=== PATIENT | female | born 1960 | race Caucasian/White ===

== ENCOUNTER 2019-07-20 03:45 | Emergency (ER) | payer OTHER ==
--- NOTE | 2019-07-20 04:12 | EDM.PDOC ---
ED HPI GENERAL MEDICAL PROBLEM - General Chief Complaint: Upper Extremity Injury/Pain Stated Complaint: INJURED RIGHT ARM Time Seen by Provider: 07/20/19 04:07 Source of Information: Reports: Patient History Limitations: Reports: No Limitations - History of Present Illness INITIAL COMMENTS - FREE TEXT/NARRATIVE: 58-year-old female presents the ED after slipping and falling on the ice outside this morning while she was preparing to go to work. She slipped and fell went on outstretched right hand injuring her right wrist with pain in her elbow was well. She also landed on her right buttock and hip states it's sore but she could walk without any difficulty. Denies hitting her head or hurting her neck or her ribs. Any injury to her knees or ankles. Patient is not on any blood thinners. She is right-hand dominant. Onset: Today Onset Date: 07/20/19 Onset Time: 03:30 Duration: Minutes: Location: Reports: Upper Extremity, Right (Landed on outstretched right hand injuring her wrist and elbow area.), Lower Extremity, Right (Contusion right hip and buttock.) Quality: Reports: Ache, Throbbing Severity: Moderate Improves with: Reports: Rest Worsens with: Reports: Movement Context: Reports: Trauma (Of the hand or wrist). Denies: Activity, Exercise, Lifting, Sick Contact Associated Symptoms: Denies: Confusion, Chest Pain ( slipped and fell in the eyes.), Cough, cough w sputum, Diaphoresis, Fever/Chills, Headaches, Loss of Appetite, Malaise, Nausea/Vomiting, Rash, Seizure, Shortness of Breath, Syncope , Weakness Treatments BOTTOM POLISHER: Reports: Other (see below) (None.) Right Wrist Pain Score (Numeric/FACES): 10 - Related Data Allergies Allergy/AdvReac Type Severity Reaction Status Date / Time chicken derived Allergy Hives Verified 07/20/19 04:07 egg Allergy Hives Verified 07/20/19 04:07 menthol [From Dermapak Plus] Allergy Itching Verified 07/20/19 03:59 tretinoin Allergy Itching Verified 07/20/19 03:59 [From Dermapak Plus] zinc oxide Allergy Itching Verified 07/20/19 03:59 [From Dermapak Plus] Home Meds: Home Meds Levothyroxine Sodium [Synthroid] 112 mcg PO ACBREAKFAST 07/20/19 [History] amLODIPine [Norvasc] 10 mg PO BEDTIME 07/20/19 [History] oxyCODONE HCl/Acetaminophen [Percocet 5-325 mg Tablet] 1 - 2 each PO Q4H PRN # 20 tablet 07/20/19 [Rx] Past Medical History HEENT History: Reports: Other (See Below) Other HEENT History: retina repair Cardiovascular History: Reports: High Cholesterol, Hypertension CONTINUOUS IMPROVEMENT BLACK BELT History: Reports: Musculoskeletal History: Reports: Fracture, Other (See Below) Other Musculoskeletal History: greenstick R wrist Endocrine/Metabolic History: Reports: Hypothyroidism (On levothyroxine.) - Past Surgical History HEENT Surgical History: Reports: Detached Retina Female Surgical History: Reports: Breast Biopsy, Cervical Cryotherapy Social & Family History - Tobacco Use Smoking Status *Q: Never Smoker - Caffeine Use Caffeine Use: Reports: Coffee - Recreational Drug Use Recreational Drug Use: No - Living Situation & Occupation Living situation: Reports: Occupation: Employed Review of Systems - Review of Systems Review Of Systems: See Below Constitutional: Reports: No Symptoms Eyes: Reports: Glasses Ears: Reports: No Symptoms Nose: Reports: No Symptoms Mouth/Throat: Reports: No Symptoms, Other Respiratory: Reports: No Symptoms Cardiovascular: Reports: No Symptoms (Denies any injury to her teeth or tongue.) , Other GI/Abdominal: Reports: No Symptoms (History of hypertension) Genitourinary: Reports: No Symptoms Musculoskeletal: Reports: Hand Pain (Severe pain right wrist rating up to her right elbow.) Skin: Reports: No Symptoms Neurological: Reports: No Symptoms Psychiatric: Reports: No Symptoms ED EXAM, GENERAL - Physical Exam Exam: See Below Exam Limited By: No Limitations General Appearance: Alert, WD/WN, Moderate Distress, Other (Temperatures 36.1. Pulse 69 respiratory of 18 BP 146/88. Sats are 100% on room air. Offered analgesia but she declined at this time. She was to wait and see what the x- rays show.) Eye Exam: Bilateral Eye: Normal Inspection, PERRL Throat/Mouth: Normal Inspection, Normal Lips, Normal Oropharynx, Other Head: Atraumatic, Normocephalic (No injuries to the tongue or teeth.) Neck: Normal Inspection, Supple, Non-Tender, Full Range of Motion. No: Lymphadenopathy (L), Lymphadenopathy (R) Respiratory/Chest: No Respiratory Distress, Lungs Clear, Normal Breath Sounds, No Accessory Muscle Use, Chest Non-Tender Cardiovascular: Normal Peripheral Pulses, Regular Rate, Rhythm, No Edema, No Gallop, No Murmur, No Rub Peripheral Pulses: 3+: Radial (L), Radial (R), Posterior Tibial (L), Posterior Tibial (R), Dorsalis Pedis (L), Dorsalis Pedis (R) GI/Abdominal: Normal Bowel Sounds, Soft, Non-Tender, No Organomegaly, No Distention, No Mass, Pelvis Stable Back Exam: Normal Inspection, Full Range of Motion. No: CVA Tenderness (L), CVA Tenderness (R) Extremities: Other (She denies any injuries to her left upper extremity or either lower extremity although she did hit her right hip and buttock on the ice. Examination of the right lower extremity shows no pain at the acromioclavicular joint or humerus. Very minimal pain on squeezing the elbow. She is unable to pronate or supinate the forearm. There is obvious swelling and slight deformity of the wrist dorsally. She is unable to make a fist. Good pulses present ulnar and radial.) Neurological: Alert, Oriented, CN II-XII Intact, Normal Cognition, Normal Gait Psychiatric: Normal Affect, Normal Mood, Other Skin Exam: Warm, Dry, Intact (In a good deal of pain), Normal Color, No Rash EKG INTERPRETATION EKG Date: 07/20/19 Time: 04:58 Rhythm: Other Rate (Beats/Min): 49 [place]: Normal P-Wave: Present QRS: Other (Decreased voltage in the limb and precordial leads. RSR prime wave in V1 which is considered a normal variant.) ST-T: Normal QT: Normal EKG Interpretation Comments: Borderline ECG. Course - Vital Signs Last Recorded V/S: Last Vital Signs Temp 36.1 C 07/20/19 03:53 Pulse 69 07/20/19 03:53 Resp 18 07/20/19 03:53 BP 146/88 H 07/20/19 03:53 Pulse Ox 100 07/20/19 03:53 - Orders/Labs/Meds Orders: Active Orders 24 hr Category Date Time Status EKG Documentation Completion [RC] STAT Care 07/20/19 04:38 Active Peripheral IV Care [RC] . DIRECTED Care 07/20/19 04:37 Active Forearm 2V Rt [CR] Stat Exams 07/20/19 04:07 Ordered Wrist Comp Min 3V Lt [CR] Stat Exams 07/20/19 04:07 Taken Sodium Chloride 0.9% [Saline Flush] Med 07/20/19 04:37 Active 10 ml FLUSH ASDIRECTED PRN DME for Discharge [COMM] Routine Oth 07/20/19 07:05 Ordered Peripheral IV Insertion Adult [OM.PC] Stat Oth 07/20/19 04:37 Ordered Medication Orders Sodium Chloride (Saline Flush) 10 ml FLUSH ASDIRECTED PRN PRN Reason: Keep Vein Open Last Admin: 07/20/19 04:49 Dose: 10 ml Labs: Laboratory Tests 07/20/19 07/20/19 Range/Units 04:50 04:50 WBC 5.17 (3.98-10.04) K/mm3 RBC 4.16 (3.98-5.22) M/mm3 Hgb 13.3 (11.2-15.7) gm/dl Hct 40.1 (34.1-44.9) % MCV 96.4 H (79.4-94.8) fl MCH 32.0 (25.6-32.2) pg MCHC 33.2 (32.2-35.5) g/dl RDW Std Deviation 42.1 (36.4-46.3) fL Plt Count 285 (182-369) K/mm3 MPV 9.1 L (9.4-12.3) fl Neut % (Auto) 60.9 (34.0-71.1) % Lymph % (Auto) 30.4 (19.3-51.7) % [place] % (Auto) 6.2 (4.7-12.5) % Eos % (Auto) 1.7 (0.7-5.8) Baso % (Auto) 0.8 (0.1-1.2) % Neut # (Auto) 3.15 (1.56-6.13) K/mm3 Lymph # (Auto) 1.57 (1.18-3.74) K/mm3 [place] # (Auto) 0.32 (0.24-0.36) K/mm3 Eos # (Auto) 0.09 (0.04-0.36) K/mm3 Baso # (Auto) 0.04 (0.01-0.08) K/mm3 Sodium 139 (136-145) mEq/L Potassium 3.7 (3.5-5.1) mEq/L Chloride 104 (98-107) mEq/L Carbon Dioxide 26 (21-32) mEq/L Anion Gap 12.7 (5-15) BUN 19 H (7-18) mg/dL Creatinine 0.8 (0.55-1.02) mg/dL Est Cr Clr Drug Dosing 76.38 mL/min Estimated GFR (MDRD) > 60 (>60) mL/min BUN/Creatinine Ratio 23.8 H (14-18) Glucose 106 (74-106) mg/dL Calcium 8.8 (8.5-10.1) mg/dL Total Bilirubin 0.4 (0.2-1.0) mg/dL AST 18 (15-37) U/L ALT 30 (14-59) U/L Alkaline Phosphatase 64 (46-116) U/L Total Protein 7.5 (6.4-8.2) g/dl Albumin 3.9 (3.4-5.0) g/dl Globulin 3.6 gm/dL Albumin/Globulin Ratio 1.1 (1-2) Meds: Medications Generic Name Dose Route Start Last Admin Trade Name Freq PRN Reason Stop Dose Admin Sodium Chloride 10 ml 07/20/19 04:37 07/20/19 04:49 Saline Flush FLUSH 10 ml ASDIRECTED PRN Administration Keep Vein Open Discontinued Medications Generic Name Dose Route Start Last Admin Trade Name Freq PRN Reason Stop Dose Admin Hydromorphone HCl 1 mg 07/20/19 04:35 07/20/19 04:47 Dilaudid IVPUSH 07/20/19 04:36 0.5 mg ONETIME ONE Administration Metoclopramide HCl 7.5 mg 07/20/19 04:37 07/20/19 04:47 Reglan IVPUSH 07/20/19 04:38 7.5 mg ONETIME ONE Administration - Radiology Interpretation Free Text/Narrative:: 58-year-old female presents to the ED after acute fall outside this morning. She slipped on the ice and landed on outstretched right hand. She is right-hand dominant. Has severe pain right wrist rating up towards the right elbow. She believes she may have hit her elbow on the ice as well. She is contused her right hip and buttock area but states she can walk and denies any severe pain in this area. Denies hitting her head injuring her neck spine or ribs. Offered analgesia but she declined at this time. Plan two-view x-ray of the forearm 3 view x-ray of the right wrist to be done. - Re-Assessments/Exams Free Text/Narrative Re-Assessment/Exam: 07/20/19 04:38 x-rays confirm a fracture of the distal radius on the right side with moderate impaction and shortening and a slightly displaced fragment from the medial aspect of the distal radius which is intra-articular. One view also shows a nondisplaced fracture through the ulnar styloid process. I suspect Dr. Boggs orthopedic surgeon will want to bring it out to length and as to whether or not the fracture the medial intra-articular surface will need to be pinned or not. The question is whether or not he has time to do it today. Patient is essentially nothing by mouth having and some water. Of coffee and her levothyroxine at 0-30 hours this morning. She is now accepting of pain medication which will be given intravenously. She will have a saline lock started and be given Dilaudid 0.5 mg IV with Reglan 7.[address] in a Ortho-Glass splint at this time a sugar tong. I will discuss the case with Dr. Boggs at a more suitable hour this morning 07/20/19 05:26 : Patient was only given 0.5 mg of Dilaudid and she is very sensitive to medication and she proved to be very sensitive. In the chair she felt like she was going to pass out and therefore he had to move her to the bed. I was unable to place her in a sugar tong Ortho-Glass splint to immobilize her fractured distal radius. Preoperative labs have been done as has ECG in case she is a candidate for surgery today. I will speak with Dr. Boggs after 0630 hrs. this morning. 07/20/19 06:51 Dr. Boggs did have a look at her x-rays and he felt that current position is satisfactory. Therefore remain in the sugar tong splint until she can see him next Wednesday in clinic for cast application. Placed in a sling to try and keep her arm elevated at the level of her heart to try and reduce swelling. Ice pack to the area one half hour out of every 4 hours today and tomorrow. I will send her home with Percocet tab 5/3/25 milligrams strength suggest trying one half tablet 1 tablet every 4 hours as needed for pain relief as she is very sensitive to medication. She can also try Motrin 600 mg every 6 hours to see if this relieves the pain without the use of a narcotic. Departure - Departure Time of Disposition: 06:52 Disposition: Home, Self-Care 01 Condition: Fair Clinical Impression: Colles' fracture of right radius, initial encounter for closed fracture, Closed Colles' fracture - Discharge Information *PRESCRIPTION DRUG MONITORING PROGRAM REVIEWED*: Not Applicable *COPY OF PRESCRIPTION DRUG MONITORING REPORT IN PATIENT MARANDA: Not Applicable Prescriptions: oxyCODONE HCl/Acetaminophen [Percocet 5-325 mg Tablet] 1 - 2 each PO Q4H PRN # 20 tablet PRN Reason: pain relief. Instructions: Wrist Fracture Treated With Immobilization, [id number] Referrals: PCP,None [Primary Care Provider] - Forms: ED Department Discharge, ED Return to Work/School Form Additional Instructions: Valuation the emergency room this morning in regards to slip and fall outside on the ice with direct blow to her outstretched right hand. This is resulted in a fracture of the distal right radius. The fracture has been immobilized in a sugar tong Ortho-Glass splint. Orthopedic surgeon did have a look at her x-rays and feels that position is adequate at this time and no surgery is going to be required. Suggest keeping her arm in a sling for the next couple of days at the level of your heart to reduce swelling. They still place ice pack over the splint for one half hour out of every 4 hours today and tomorrow to help reduce swelling. He was so sensitive to medication he may try Motrin 600 mg every 6 hours to reduce pain and if needed take a half to 1 tablet of Percocet -5/325 mg strength for pain relief. Often they were quite well in combination with Motrin and low-dose narcotic pain pill. His phone Dr. Boggs's office at [phone] to arrange an appointment next Wednesday for cast application. Tell them that you have broken her distal radius and that I have spoken with Dr. Boggs in this regard. Sepsis Event Note - Evaluation Sepsis Screening Result: No Definite Risk - Focused Exam Vital Signs: Vital Signs Temp Pulse Resp BP Pulse Ox 07/20/19 03:53 36.1 C 69 18 146/88 H 100 Date Exam was Performed: 07/20/19 Time Exam was Performed: 07:17 - My Orders Last 24 Hours: My Active Orders 07/20/19 04:07 Forearm 2V Rt [CR] Stat Wrist Comp Min 3V Lt [CR] Stat 07/20/19 04:37 Peripheral IV Care [RC] . DIRECTED Sodium Chloride 0.9% [Saline Flush] 10 ml FLUSH ASDIRECTED PRN Peripheral IV Insertion Adult [OM.PC] Stat 07/20/19 04:38 EKG Documentation Completion [RC] STAT 07/20/19 07:05 DME for Discharge [COMM] Routine - Assessment/Plan Last 24 Hours: My Active Orders 07/20/19 04:07 Forearm 2V Rt [CR] Stat Wrist Comp Min 3V Lt [CR] Stat 07/20/19 04:37 Peripheral IV Care [RC] . DIRECTED Sodium Chloride 0.9% [Saline Flush] 10 ml FLUSH ASDIRECTED PRN Peripheral IV Insertion Adult [OM.PC] Stat 07/20/19 04:38 EKG Documentation Completion [RC] STAT 07/20/19 07:05 DME for Discharge [COMM] Routine
[2019-07-20] MEDS ORDERED: HYDROmorphone 1 MG/ML Syringe IVPUSH ONE (04:35)
[2019-07-20] MEDS ORDERED: Metoclopramide 10 MG/2 ML SDV IVPUSH ONE (04:37)
[2019-07-20] MEDS ORDERED: Sodium Chloride 0.9% 10 ML Syringe FLUSH PRN (04:37)
--- NOTE | 2019-07-20 10:22 | CR ---
Right forearm: Two views of the right forearm were obtained. Comparison: No prior forearm study. Distal radial fracture is identified to the metaphysis with mild posterior impaction. Soft tissue swelling is noted. No additional forearm abnormality is seen. Impression: 1. Distal right radial fracture. 2. No other bony abnormality is appreciated on right forearm study. Diagnostic code #3 This report was dictated in [place] Standard Time
--- NOTE | 2019-07-20 10:22 | CR ---
Right wrist: Four views of the right wrist are obtained. Comparison: No previous wrist exam, study correlated with forearm study performed on the same day. Distal radial fracture is seen. Fracture is slightly impacted posteriorly. Well-corticated bony density is noted off the ulnar styloid process which appears old. Moderate degenerative change is noted within CMC joint of the thumb. Soft tissue swelling is noted. Impression: 1. Distal radial fracture which shows slight posterior impaction. 2. Old bony density off the ulnar styloid process. 3. Degenerative change. Diagnostic code #3 This report was dictated in [place] Standard Time
== END 2019-07-20 07:22 | disposition home or self-care (01) ==
LOC: JD.ED 03:45
DX: S52.531A Colles' fracture of right radius, initial encounter for closed fracture (principal); S52.614A Nondisplaced fracture of right ulna styloid process, initial encounter for closed fracture; E78.00 Pure hypercholesterolemia, unspecified; I10 Essential (primary) hypertension; E03.9 Hypothyroidism, unspecified; Z91.018 Allergy to other foods; Z79.890 Hormone replacement therapy; Z79.899 Other long term (current) drug therapy; Z88.8 Allergy status to other drugs, medicaments and biological substances; W00.0XXA Fall on same level due to ice and snow, initial encounter; Y93.89 Activity, other specified
CPT/HCPCS: 29125; 36415; 73090; 73110; 80053; 85025; 93005; 96374; 96375; 99284; J1170; J2765

== ENCOUNTER 2021-03-31 18:10 | Emergency (ER) | payer BC, OTHER ==
--- NOTE | 2021-03-31 18:48 | EDM.PDOC ---
ED HPI GENERAL MEDICAL PROBLEM - General Chief Complaint: General Stated Complaint: COVID+/FEVER Time Seen by Provider: 03/31/21 18:17 Source of Information: Reports: Patient, RN Notes Reviewed History Limitations: Reports: No Limitations - History of Present Illness INITIAL COMMENTS - FREE TEXT/NARRATIVE: Patient is a 60-year-old female who presents to the ER for her COVID-19 symptoms with associated high fever. Patient notes her fever has been as high as 103 F at home, she has been alternating some ibuprofen and Tylenol for this, her last dose ibuprofen was this morning, and Tylenol was shortly prior to arrival to the ER. Patient states that she has not had much of an appetite, but she is eating and drinking still as she is making herself eat. She has had no cough, no worsening shortness of breath, no nausea/vomiting/diarrhea. Patient will be setting up care with Odette Contreras for primary care management. Patient carries a history of hypertension and hypothyroidism. Patient notes that she started having COVID-19 symptoms on 03/22/2021 and was diagnosed with COVID-19 on 03/25/2021. She did not get any of the vaccines. - Related Data Allergies Allergy/AdvReac Type Severity Reaction Status Date / Time chicken derived Allergy Hives Verified 03/31/21 18:29 egg Allergy Hives Verified 03/31/21 18:29 latex Allergy Rash Verified 03/31/21 18:45 menthol [From Dermapak Plus] Allergy Itching Verified 03/31/21 18:29 tretinoin Allergy Itching Verified 03/31/21 18:29 [From Dermapak Plus] zinc oxide Allergy Itching Verified 03/31/21 18:29 [From Dermapak Plus] Home Meds: Home Meds Levothyroxine Sodium [Synthroid] 112 mcg PO ACBREAKFAST 07/20/19 [History] amLODIPine [Norvasc] 10 mg PO BEDTIME 07/20/19 [History] Past Medical History HEENT History: Reports: Impaired Vision, Other (See Below) Other HEENT History: retina repair, wears eyeglasses. Cardiovascular History: Reports: High Cholesterol, Hypertension Respiratory History: Reports: Asthma Other Respiratory History: in childhood SPOOLER History: Reports: Musculoskeletal History: Reports: Fracture, Other (See Below) Other Musculoskeletal History: greenstick R wrist Endocrine/Metabolic History: Reports: Hypothyroidism Hematologic History: Reports: Anemia - Infectious Disease History Infectious Disease History: Reports: Chicken Pox, Measles, Mumps, Novel Coronavirus (03/25/21) - Past Surgical History HEENT Surgical History: Reports: Detached Retina Female Surgical History: Reports: Breast Biopsy, Cervical Cryotherapy Social & Family History - Tobacco Use Tobacco Use Status *Q: Never Tobacco User Second Hand Smoke Exposure: No - Caffeine Use Caffeine Use: Reports: Coffee - Recreational Drug Use Recreational Drug Use: No - Living Situation & Occupation Living situation: Reports: Occupation: Employed ED ROS GENERAL - Review of Systems Review Of Systems: Comprehensive ROS is negative, except as noted in HPI. ED EXAM, GENERAL - Physical Exam Exam: See Below Exam Limited By: No Limitations General Appearance: Alert, WD/WN, No Apparent Distress Respiratory/Chest: No Respiratory Distress, Lungs Clear, Normal Breath Sounds, No Accessory Muscle Use, Chest Non-Tender Cardiovascular: Normal Peripheral Pulses, Regular Rate, Rhythm, No Edema Peripheral Pulses: 2+: Radial (L), Radial (R) Extremities: Normal Inspection, Normal Capillary Refill Neurological: Alert, Oriented, Normal Cognition, No Motor/Sensory Deficits Psychiatric: Normal Affect, Normal Mood Skin Exam: Warm, Dry, Intact, Normal Color, No Rash #1 Interpretation EKG Date: 03/31/21 Time: 19:20 Rhythm: NSR Rate (Beats/Min): 79 [place]: Normal P-Wave: Present QRS: Normal ST-T: Normal QT: Normal Comparison: NA - No Prior EKG EKG Interpretation Comments: No obvious ischemia or acute ST changes noted, reviewed by myself and Dr. Yip. Course - Vital Signs Last Recorded V/S: Last Vital Signs Temp 96.6 F L 03/31/21 18:25 Pulse 84 03/31/21 18:25 Resp 16 03/31/21 18:25 BP 132/89 03/31/21 18:25 Pulse Ox 97 03/31/21 18:25 - Orders/Labs/Meds Orders: Active Orders 24 hr Category Date Time Status Chest 1V Frontal [CR] Stat Exams 03/31/21 18:46 Ordered Labs: Laboratory Tests 03/31/21 03/31/21 03/31/21 Range/Units 19:00 19:00 19:00 WBC 2.94 L (3.98-10.04) K/mm3 RBC 4.05 (3.98-5.22) M/mm3 Hgb 12.8 (11.2-15.7) gm/dl Hct 38.4 (34.1-44.9) % MCV 94.8 (79.4-94.8) fl MCH 31.6 (25.6-32.2) pg MCHC 33.3 (32.2-35.5) g/dl RDW Std Deviation 41.7 (36.4-46.3) fL Plt Count 128 L D (182-369) K/mm3 MPV 9.5 (9.4-12.3) fl Neut % (Auto) 70.1 (34.0-71.1) % Lymph % (Auto) 23.8 (19.3-51.7) % [place] % (Auto) 5.1 (4.7-12.5) % Eos % (Auto) 0.7 (0.7-5.8) Baso % (Auto) 0.3 (0.1-1.2) % Neut # (Auto) 2.06 (1.56-6.13) K/mm3 Lymph # (Auto) 0.70 L (1.18-3.74) K/mm3 [place] # (Auto) 0.15 L (0.24-0.36) K/mm3 Eos # (Auto) 0.02 L (0.04-0.36) K/mm3 Baso # (Auto) 0.01 (0.01-0.08) K/mm3 Manual Slide Review Abnormal smear PT 10.2 (9.7-12.0) SECONDS INR 0.95 APTT 31.6 H (21.7-31.4) SECONDS D-Dimer, Quantitative 0.31 (0.19-0.50) mg/L Sodium (136-145) mEq/L Potassium (3.5-5.1) mEq/L Chloride (98-107) mEq/L Carbon Dioxide (21-32) mEq/L Anion Gap (5-15) BUN (7-18) mg/dL Creatinine (0.55-1.02) mg/dL Est Cr Clr Drug Dosing mL/min Estimated GFR (MDRD) (>60) mL/min BUN/Creatinine Ratio (14-18) Glucose (70-99) mg/dL Calcium (8.5-10.1) mg/dL Magnesium (1.8-2.4) mg/dL Total Bilirubin (0.2-1.0) mg/dL AST (15-37) U/L ALT (14-59) U/L Alkaline Phosphatase (46-116) U/L Troponin I (0.00-0.056) ng/mL C-Reactive Protein 4.5 H* (<1.0) mg/dL NT-Pro-B Natriuret Pep (0-125) pg/mL Total Protein (6.4-8.2) g/dl Albumin (3.4-5.0) g/dl Globulin gm/dL Albumin/Globulin Ratio (1-2) 03/31/21 03/31/21 Range/Units 19:00 19:00 WBC (3.98-10.04) K/mm3 RBC (3.98-5.22) M/mm3 Hgb (11.2-15.7) gm/dl Hct (34.1-44.9) % MCV (79.4-94.8) fl MCH (25.6-32.2) pg MCHC (32.2-35.5) g/dl RDW Std Deviation (36.4-46.3) fL Plt Count (182-369) K/mm3 MPV (9.4-12.3) fl Neut % (Auto) (34.0-71.1) % Lymph % (Auto) (19.3-51.7) % [place] % (Auto) (4.7-12.5) % Eos % (Auto) (0.7-5.8) Baso % (Auto) (0.1-1.2) % Neut # (Auto) (1.56-6.13) K/mm3 Lymph # (Auto) (1.18-3.74) K/mm3 [place] # (Auto) (0.24-0.36) K/mm3 Eos # (Auto) (0.04-0.36) K/mm3 Baso # (Auto) (0.01-0.08) K/mm3 Manual Slide Review PT (9.7-12.0) SECONDS INR APTT (21.7-31.4) SECONDS D-Dimer, Quantitative (0.19-0.50) mg/L Sodium 139 (136-145) mEq/L Potassium 3.3 L (3.5-5.1) mEq/L Chloride 103 (98-107) mEq/L Carbon Dioxide 28 (21-32) mEq/L Anion Gap 11.3 (5-15) BUN 13 (7-18) mg/dL Creatinine 0.7 (0.55-1.02) mg/dL Est Cr Clr Drug Dosing 82.07 mL/min Estimated GFR (MDRD) > 60 (>60) mL/min BUN/Creatinine Ratio 18.6 H (14-18) Glucose 100 H (70-99) mg/dL Calcium 7.8 L (8.5-10.1) mg/dL Magnesium 2.2 (1.8-2.4) mg/dL Total Bilirubin 0.4 (0.2-1.0) mg/dL AST 30 (15-37) U/L ALT 40 (14-59) U/L Alkaline Phosphatase 64 (46-116) U/L Troponin I < 0.017 (0.00-0.056) ng/mL C-Reactive Protein (<1.0) mg/dL NT-Pro-B Natriuret Pep 102 (0-125) pg/mL Total Protein 6.8 (6.4-8.2) g/dl Albumin 3.4 (3.4-5.0) g/dl Globulin 3.4 gm/dL Albumin/Globulin Ratio 1.0 (1-2) - Re-Assessments/Exams Free Text/Narrative Re-Assessment/Exam: 03/31/21 19:24 Patient presents to the ER for COVID-19 symptoms, she is not hypoxic at time of triage., And she is essentially afebrile. I did go over with her the disease course for COVID-19, that is known to providers for the most part. She verbalized understanding at this time. We will get a chest x-ray and basic labs for management, and comparison purposes should her symptoms worsen. 03/31/21 19:51 Chest x-ray has been performed, official radiology read is pending however there are no patchy infiltrates that is suggestive of COVID-19 at this time by my eye. CBC showed a slightly low white count, which is typical for the viral infection, and coags have resulted and her D-dimer was within normal limits. 03/31/21 19:57 Metabolic panel is essentially unremarkable, her potassium is mildly low at 3.3, which is likely nutritional due to not having much of an appetite. CRP is only mildly elevated at 4.5. We will discharge her home with general recommendations and have her follow-up with her primary care provider on April 08 at her next appointment. Departure - Departure Time of Disposition: 19:58 Disposition: Home, Self-Care 01 Condition: Good Clinical Impression: COVID-19, Fever due to COVID-19 - Discharge Information *PRESCRIPTION DRUG MONITORING PROGRAM REVIEWED*: No *COPY OF PRESCRIPTION DRUG MONITORING REPORT IN PATIENT MARANDA: No Instructions: Fever, Adult, 10 Things You Can Do to Manage Your COVID-19 Symptoms at Home - [facility] (02/07/2020) Referrals: Odette Contreras, TAFFY CANDY MAKER [Primary Care Provider] - 04/08/21 (please keep next appt for follow up and to set up care with new patient) Forms: ED Department Discharge, ED Return to Work/School Form Additional Instructions: You were seen in the ER today for ongoing and/or worsening respiratory symptoms. Your chest x-ray showed no signs of pneumonia at this time. Your oxygen levels were great at 94-95% on room air. Please try to increase your oral fluid intake, and eat multiple small meals throughout the day, to keep yourself healthy. You need to keep yourself nourished in order to fight off this disease. You can try a liquid diet like gatorade/powerade as well to get your electrolytes. You may take 500 mg Tylenol (acetaminophen) or 600mg Ibuprofen (Advil, Motrin) every hours 6 hours for pain/fever relief. Do not exceed 4000 mg Tylenol or 3200 mg ibuprofen in a 24-hour time span. However, running a fever is your body's natural response to illness, and it allows the body to develop antibodies to disease, we are recommending trying to limit the use of Tylenol as much as possible to allow your body's natural immune response. Recommend you obtain a pulse oximeter and monitor your oxygen levels at home, you should place the monitor on your finger, and sit in a calm, quiet position for a few minutes and then record the number that is on the screen. If this consistently below 90% on room air without movement, this would be cause for concern to come back to the hospital for further management of your COVID-19 disease. Please follow all guidance set forth from [facility], regarding isolation purposes for your disease process. Sepsis Event Note (ED) - Evaluation Sepsis Screening Result: No Definite Risk - Focused Exam Vital Signs: Vital Signs Temp Pulse Resp BP Pulse Ox 03/31/21 18:25 96.6 F L 84 16 132/89 97 - My Orders Last 24 Hours: My Active Orders 03/31/21 18:46 Chest 1V Frontal [CR] Stat - Assessment/Plan Last 24 Hours: My Active Orders 03/31/21 18:46 Chest 1V Frontal [CR] Stat
--- NOTE | 2021-03-31 20:25 | CR ---
Chest: Portable view of the chest was obtained. Comparison: No prior chest imaging is available. Heart size and mediastinum are within normal limits. Lungs are clear with no acute parenchymal change. Bony structures appear within normal limits for the patient's age. Impression: 1. Nothing acute is seen on portable chest x-ray. Diagnostic code #1
== END 2021-03-31 20:20 | disposition home or self-care (01) ==
LOC: JD.ED 18:10 → SUPCPDRO 18:10 → JD.ED 20:20
DX: U07.1 COVID-19 (principal); I10 Essential (primary) hypertension; J45.909 Unspecified asthma, uncomplicated; E03.9 Hypothyroidism, unspecified; Z88.8 Allergy status to other drugs, medicaments and biological substances; Z91.018 Allergy to other foods; Z91.040 Latex allergy status; Z91.012 Allergy to eggs; Z79.899 Other long term (current) drug therapy
CPT/HCPCS: 36415; 71045; 71045-26; 80053; 83735; 83880; 84484; 85025; 85379; 85610; 85730; 86140; 93005; 93010; 99283; 99284-25

== ENCOUNTER 2022-07-07 22:44 | Emergency (ER) | payer BC ==
[2022-07-07] MEDS ORDERED: Acetaminophen/HYDROcodone 325-5 MG Tab PO ONE (23:11)
== END 2022-07-08 00:11 | disposition home or self-care (01) ==
LOC: JD.ED 22:44
DX: M23.91 Unspecified internal derangement of right knee (principal); I10 Essential (primary) hypertension; E03.9 Hypothyroidism, unspecified; E78.00 Pure hypercholesterolemia, unspecified; Z79.899 Other long term (current) drug therapy; Z91.012 Allergy to eggs; Z91.040 Latex allergy status; Z91.018 Allergy to other foods; Z88.8 Allergy status to other drugs, medicaments and biological substances
CPT/HCPCS: 73562; 99283; A9270

== ENCOUNTER 2024-09-16 17:12 | Emergency (ER) | payer SELFPAY ==
[2024-09-16 18:30] LABS: BASOPHILS ABSOLUTE AUTO 0.1 K/mm3 (0.0-0.2); BASOPHILS PERCENT AUTO 1.2 % (0.0-1.0); EOSINOPHILS ABSOLUTE AUTO 0.2 K/mm3 (0.0-0.4); EOSINOPHILS PERCENT AUTO 3.8 % (0.0-6.0); HEMATOCRIT 41.4 % (37.0-47.0); HEMOGLOBIN 13.9 gm/dl (12.0-16.0); IMMATURE GRAN ABSOLUTE AUTO 0.02 K/mm3 (0.00-0.05); IMMATURE GRAN PERCENT AUTO 0.5 % (0.0-0.4); LYMPHOCYTES ABSOLUTE AUTO 1.5 K/mm3 (1.0-4.8); LYMPHOCYTES PERCENT AUTO 36.3 % (24.0-44.0); MEAN CORPUSCULAR HEMOGLOBIN 32.8 pg (28.0-32.0); MEAN CORPUSCULAR HGB CONC 33.6 g/dl (32.0-36.0); MEAN CORPUSCULAR VOLUME 97.6 fl (83.0-99.0); MEAN PLATELET VOLUME 9.1 fl (9.4-12.3); MONOCYTES ABSOLUTE AUTO 0.3 K/mm3 (0.0-0.8); MONOCYTES PERCENT AUTO 6.4 % (0.0-8.0); NEUTROPHILS ABSOLUTE AUTO 2.2 K/mm3 (1.8-7.7); NEUTROPHILS PERCENT AUTO 51.8 % (41.0-71.0); PLATELET COUNT,PLT 236 K/mm3 (150-400); RED BLOOD CELL COUNT 4.24 M/mm3 (4.10-5.30); WHITE BLOOD CELL COUNT,WBC 4.21 K/mm3 (3.9-11.3)
[2024-09-16 19:10] LABS: A/G RATIO 1.1 (1-2); ALBUMIN 3.9 g/dl (3.4-5.0); ANION GAP 10.3 (5-15); BILIRUBIN TOTAL 0.4 mg/dL (0.2-1.0); BUN/CREATININE RATIO 13.3 (14-18); CALCIUM 8.4 mg/dL (8.5-10.1); CREATININE 0.9 mg/dL (0.55-1.02); EST CRCL DRUG DOSING (CG) 61.41 mL/min; POTASSIUM,K 3.3 mEq/L (3.5-5.1); PROTEIN TOTAL,TP 7.4 g/dl (6.4-8.2); TSH 59.551 uIU/mL (0.358-3.74)
[2024-09-16 19:17] LABS: MAGNESIUM 2.5 mg/dL (1.8-2.4)
== END 2024-09-16 20:08 | disposition home or self-care (01) ==
LOC: JD.ED 17:12
DX: E87.6 Hypokalemia (principal); R42 Dizziness and giddiness; M25.511 Pain in right shoulder; E03.9 Hypothyroidism, unspecified; I10 Essential (primary) hypertension; J45.909 Unspecified asthma, uncomplicated; Z91.012 Allergy to eggs; Z91.040 Latex allergy status; Z88.8 Allergy status to other drugs, medicaments and biological substances; Z79.890 Hormone replacement therapy; Z79.899 Other long term (current) drug therapy; Z86.16 Personal history of COVID-19
CPT/HCPCS: 36415; 80053; 83735; 84443; 84484; 85025; 87428-QW; 93005; 99284